=== PATIENT | female | born 1980 | race Caucasian/White ===

== ENCOUNTER 2018-07-21 09:36 | Outpatient (REF) | payer BC, SELFPAY ==
--- NOTE | 2018-07-21 16:00 | PAPFT_PTH ---
PATIENT: Elizabet Bahena LOC: [facility] U#:[id number] AGE/SX: 38/F ROOM: RE07/21/[address]: Yesenia Lemus : 1980 BED: DIS: 07/21/2018 SPEC #: [id number] RECD: 07/22/18 12:42 STATUS: JORGE LUIS REQ #: [id number] SERAFIN: 07/21/18 16:[address]: Yesenia Lemus DEPT: [facility] Cytology RECD BY: Heather Britton ENTERED: 07/22/18 12:42 SP TYPE: PAPFT OTHR DR: Kalpesh Merlos Tissues: 1 - CX/ENDOCX FOR PAP SMEARS Procedures: PAP THIN PREP/[facility] Screening HPV DNA PROBE Comments: [id number] (CHLAMYDIA/GC)
[2018-07-23 14:13] LABS: Chlamydia Result Negative; GC Result Negative; Specimen Description SEE COMMENTS
== END 2018-07-21 09:56 ==
LOC: NCHCN 09:36
PROVIDERS: PCP Internal Medicine; Visit Provider Nurse Practitioner
DX: Z00.00 Encounter for general adult medical examination without abnormal findings (principal); Z12.4 Encounter for screening for malignant neoplasm of cervix; Z11.51 Encounter for screening for human papillomavirus (HPV); Z11.3 Encounter for screening for infections with a predominantly sexual mode of transmission
CPT/HCPCS: 87491; 87591; 88142; 87624

== ENCOUNTER 2021-10-25 00:26 | Outpatient (CLI) | payer BC, SELFPAY ==
--- NOTE | 2021-10-25 09:39 | DI.RAD_ITS ---
Exam(s) RF HYSTEROSALPINGOGRAM EXAM: RF HYSTEROSALPINGOGRAM CLINICAL HISTORY: evaluate uterus, pre procedure lab exam, Z01.812 TECHNIQUE: 2D and realtime digital imaging was performed. CONTRAST MATERIAL: Water soluble contrast was administered. This was instilled in the uterine cavit y via a balloon tip end hole catheter which was placed by the provider peer COMPARISON: No exams were available for comparison FINDINGS: Uterine cavity appears unremarkable. No intraluminal filling defects evident within the endometrial canal and no obvious extrinsic compression evident upon the endometrial canal. Both fallopian tubes filled rapidly and symmetrically and there was spillage of contrast into the per itoneal cavity bilaterally. IMPRESSION: 1. Patent bilateral fallopian tubes. 2. Normal appearing endometrial cavity. RADIATION DOSE DELIVERED: emigdio Pelaez=8.1 mGy
[2021-10-25] MEDS: Omnipaque 350 MG/ML 50 ML BTL 10 ML IJ (09:43)
--- NOTE | 2021-10-25 09:59 | W.PROCNOTE ---
Date of service: 10/25/21 Time of Service: 09:00 Procedure Note Date of procedure: 10/25/21 Procedure: Hysterosalpingogram Surgeon/Proceduralist/Physician: Carolyn Bedolla Procedure Diagnosis: Infertility Procedure Indications: Pt is 41yo and has been trying for a for 10mo. Normal semenanalysis and sono. Regular ovulatory cycles. Procedure Description: The patient arrived to diagnostic imaging for HSG for infertility. The procedure was explained and consent was signed. She was positioned in the dorsal lithotomy position on the table. A time out was performed. The speculum was placed in the vagina to expose the cervix. The cervix was clensed with betadyne. The catheter was inserted through the cervix into the uterine cavity. The balloon was inflated. The speculum was then removed. When the radiologist was present the patient was repositioned. The contrast was then injected while the radiologist performed fluroscopy. The balloon was then deflated and the catheter was removed. The uterine cavity appeared normal and both tubes appeared patent with positive spill noted bilaterally.
== END 2021-10-25 00:46 ==
PROVIDERS: PCP Internal Medicine; Visit Provider Obstetrics & Gynecology
DX: N97.8 Female infertility of other origin
CPT/HCPCS: 58340; 74740; Q9967

== ENCOUNTER 2022-12-21 02:00 | Outpatient (CLI) | payer BC, SELFPAY ==
[2022-12-21 12:53] LABS: TSH (W/Ref FT4) 0.94 uIU/mL (0.36-3.74)
[2022-12-21 22:47] LABS: Estradiol 116 pg/mL (See Note)
[2022-12-21 23:07] LABS: FSH 4.3 mIU/mL (See Note)
[2022-12-24 12:27] LABS: Antimullerian Hormone 3.6 ng/mL (0.03-5.5)
== END 2022-12-21 02:01 | disposition home or self-care (01) ==
LOC: LOS 02:00
PROVIDERS: PCP Internal Medicine; Visit Provider Obstetrics & Gynecology
DX: N97.9 Female infertility, unspecified (principal)
CPT/HCPCS: 36415; 82670; 83001; 83520; 84443

== ENCOUNTER 2023-09-27 16:02 | Outpatient (REF) | payer BC, SELFPAY ==
--- NOTE | 2023-09-27 08:15 | PAPFT_PTH ---
PATIENT: Elizabet Bahena LOC: [facility] U#:[id number] AGE/SX: 43/F ROOM: RE09/27/[address]: Юлия Pandey : 1980 BED: DIS: 09/27/2023 SPEC #: [id number] RECD: 09/27/23 16:34 STATUS: JORGE LUIS RESarita #: [id number] SERAFIN: 09/27/23 08:[address]: Юлия Pandey DEPT: [facility] Cytology RECD BY: Heather Britton ENTERED: 09/27/23 16:34 SP TYPE: PAPFT OTHR DR: Kalpesh Merlos Tissues: 1 - CX/ENDOCX FOR PAP SMEARS Procedures: PAP THIN PREP/[facility] Screening HPV DNA PROBE Comments: [id number]
== END 2023-09-27 16:03 | disposition home or self-care (01) ==
LOC: NCHCN 16:02
PROVIDERS: PCP Internal Medicine; Visit Provider Nurse Practitioner Family
DX: Z00.00 Encounter for general adult medical examination without abnormal findings (principal); Z12.4 Encounter for screening for malignant neoplasm of cervix; Z01.419 Encounter for gynecological examination (general) (routine) without abnormal findings
CPT/HCPCS: 88142; 87624

== ENCOUNTER → 2023-10-01 00:54 | Outpatient (CLI) | payer BC, SELFPAY ==
--- NOTE | 2023-10-01 02:00 | DI.MAMMO_ITS ---
Exam(s) MAMMO SCREENING EXAM: MAMMO SCREENING CLINICAL HISTORY: SCREENING,Z12.31 TECHNIQUE: Bilateral full field digital CC and MLO mammographic images were obtained with 3D tomosyn thesis and utilizing computer aided detection (CAD). COMPARISON: This is a baseline examination. FINDINGS: Masses/Architectural Distortion: None seen. Microcalcifications: No suspicious pleomorphic-type are seen. Skin Thickening/Nipple Retraction: None. IMPRESSION: 1. No significant interval change with no specific features of malignancy noted. 2. Unless there is more urgent need, screening mammography is recommended, as per [employer] guidelines. BI-RADS Category 1 - Negative Breast Density - Category C - Heterogeneously dense Breast density category C or D implies that the patient has dense breast tissue. Dense breast tissue is very common and is not abnormal but dense breast tissue can make it harder to find cancer on a ma mmogram. Also, dense breast tissue may increase their breast cancer risk. This information about the result of the mammogram report was provided to the patient to raise their awareness. Use this report when you speak with the patient about their risks for breast cancer, which includes their family hist ory. At that time, you may recommend for more screening tests (Ultrasound or MRI) as they might be us eful based on their risk. A negative radiographic report should not delay biopsy if a dominant or clinically suspicious mass is present. Up to ten percent of cancers are not identified on mammography. A negative report may reinforce clinical impression. Adenosis and dense breasts may obscure an underlying neoplasm. False positive reports average 6 to 10%. Patient will receive a letter notifying them of these results.
== END ==
PROVIDERS: PCP Internal Medicine; Visit Provider Nurse Practitioner Family
DX: Z12.31 Encounter for screening mammogram for malignant neoplasm of breast (principal)
CPT/HCPCS: 77063; 77067

== ENCOUNTER 2024-12-22 00:35 | Outpatient (CLI) | payer BC, SELFPAY ==
--- NOTE | 2024-12-22 | DI.MAMMO_ITS ---
Exam(s) MAMMO SCREENING EXAM: MAMMO SCREENING CLINICAL HISTORY: SCREENING, Z80.3, FAMILY HX BREAST CANCER. TECHNIQUE: Bilateral full field digital CC and MLO mammographic images were obtained with 3D tomosyn thesis and utilizing computer aided detection (CAD). COMPARISON: Prior baseline mammogram of September 2023 was reviewed FINDINGS: Fibroglandular tissue pattern is again noted be dense, this somewhat decreasing the sensitivity of th e mammogram for finding hidden underlying lesions. There are no new s obvious piculated masses nor new malignant appearing microcalcification groups. There is no new significant architectural distortion nor skin thickening-retraction. IMPRESSION: Dense bilateral fibroglandular tissue. No obvious radiographic evidence of malignancy. BI-RADS Category 1 - Negative Breast Density - Category C - Heterogeneously dense Breast density Category C or D implies that the patient has dense breast tissue. Dense breast tissue can make it harder to find cancer on a mammogram. Dense breast tissue is also associated with an incr eased risk of breast cancer. This information about the result of the mammogram report was provided to the patient to raise their awareness. Use this report when you speak with the patient about their risks for breast cancer, which includes their family history. At that time, you may recommend additional screening tests (Ultrasoun d or MRI) as these tests may add significant information. A negative radiographic report should not delay biopsy if a dominant or clinically suspicious mass is present. Up to ten percent of cancers are not identified on mammography. A negative report may reinforce clinical impression. Adenosis and dense breasts may obscure an underlying neoplasm. False positive reports average 6 to 10%. Patient will receive a letter notifying them of these results.
== END 2024-12-22 00:55 ==
LOC: DI 00:36
PROVIDERS: PCP Internal Medicine; Visit Provider Nurse Practitioner Family
DX: Z12.31 Encounter for screening mammogram for malignant neoplasm of breast (principal); Z80.3 Family history of malignant neoplasm of breast; R92.333 Mammographic heterogeneous density, bilateral breasts
CPT/HCPCS: 77063; 77067

== ENCOUNTER 2025-05-05 02:11 | Outpatient (CLI) | payer BC, SELFPAY ==
[2025-05-05 17:13] LABS: Abs Immature Grans 0.01 10^3/uL (0.0-0.06); HCT 36.7 % (36.0-46.0); HGB 12.4 g/dL (11.2-15.7); Immature Grans % 0.2 %; MCH 30.0 pg (27.0-33.0); MCHC 33.8 % (32.0-36.0); MCV 89 fL (80-95); MPV 9.9 fL (8.0-11.0); Platelet Count 189 10^3/uL (130-400); RBC 4.14 10^6/uL (3.93-5.22); RDW 12.3 % (11.7-14.6); RDW-SD 39.9 fL; WBC 6.18 10^3/uL (4.4-10.8)
[2025-05-07 09:44] LABS: HIV-1/2 Ag & Ab Screen Negative (Negative)
[2025-05-07 10:14] LABS: Hepatitis C Ab w Rflx HCV PCR Negative (Negative)
[2025-05-07 10:40] LABS: Rubella IgG Ab (UVM) Positive (See Note)
[2025-05-09 12:24] LABS: Syphilis IgG w/Reflex Nonreactive (Nonreactive)
== END 2025-05-05 02:12 | disposition home or self-care (01) ==
LOC: LBO 02:11
PROVIDERS: Advanced Practice Midwife; PCP Internal Medicine; Visit Provider Advanced Practice Midwife
DX: Z34.91 Encounter for supervision of normal pregnancy, unspecified, first trimester (principal); O09.811 Supervision of pregnancy resulting from assisted reproductive technology, first trimester
CPT/HCPCS: 36415; 86787; 86803; 86850; 86900; 86901; 87340; 87389; 85025; 86762; 86780

== ENCOUNTER 2025-05-05 18:04 | Outpatient (REF) | payer BC, SELFPAY ==
[2025-05-07 11:22] LABS: Chlamydia Result Negative (Negative); GC Result Negative (Negative)
== END 2025-05-05 18:05 | disposition home or self-care (01) ==
LOC: LBN 18:04
PROVIDERS: PCP Internal Medicine; Visit Provider Advanced Practice Midwife
DX: O09.811 Supervision of pregnancy resulting from assisted reproductive technology, first trimester (principal)
CPT/HCPCS: 87491; 87591; 87086